=== PATIENT | female | born 1945 | race Caucasian/White ===

== ENCOUNTER 2017-04-18 02:44 | Emergency (ER) | payer BC ==
[~2017-04-18] VITALS: Ht 160 cm; Wt 62.0 kg
[2017-04-18 02:46] VITALS: BP 168/78; PULSE 88; RESP 16; TEMP 99.1; O2SAT 99
[2017-04-18] MEDS ORDERED: FURO10SO PO (03:15)
[2017-04-18] MEDS ORDERED: LIPI20TA PO (03:15)
[2017-04-18] MEDS ORDERED: ALPR0.25 PO (03:15)
[2017-04-18] MEDS ORDERED: FISHCAP4 PO (03:15)
[2017-04-18] MEDS ORDERED: BUPR150XL PO (03:15)
[2017-04-18] MEDS ORDERED: SODIUM CHLORIDE 0.9% FLUSH 10 ML FLUSH IV FLUSH PRN (03:15)
[2017-04-18] MEDS ORDERED: VITA250T3 PO (03:15)
[2017-04-18] MEDS ORDERED: GLUC15009 PO (03:15)
[2017-04-18] MEDS ORDERED: LEVO100T5 PO (03:15)
[2017-04-18] MEDS ORDERED: OMEGCAP PO (03:15)
[2017-04-18] MEDS ORDERED: FERR325T8 PO (03:15)
[2017-04-18] MEDS ORDERED: LANS30CA PO (03:15)
[2017-04-18] MEDS ORDERED: IBUPROFEN 600 MG TAB PO ONE (03:30)
[2017-04-18] MEDS ORDERED: SODIUM CHLOR 0.9% 1000 ML INJ 1,000 ML IV ONE (03:30)
[2017-04-18 03:31] LABS: AUTOMATED NEUTROPHIL # 13.9 TH/MM3 (1.8-7.7); BASOPHIL % 0.3 % (0.0-2.0); EOSINOPHIL % 0.3 % (0.0-4.0); HEMATOCRIT 40.3 % (35.0-46.0); HEMO FLAGS DIFF FINAL; LYMPH % 4.5 % (9.0-44.0); LYMPHOCYTE # 0.7 TH/MM3 (1.0-4.8); MEAN CELL VOLUME 90.3 FL (80.0-100.0); MEAN CORPUSCULAR HEMOGLOBIN 30.2 PG (27.0-34.0); MEAN CORPUSCULAR HGB CONC 33.5 % (32.0-36.0); MONO % 5.4 % (0.0-8.0); NEUT % 89.5 % (16.0-70.0); PLATELET COUNT 158 TH/MM3 (150-450); RED BLOOD COUNT 4.46 MIL/MM3 (4.00-5.30); RED CELL DISTRIBUTION WIDTH 11.4 % (11.6-17.2); WHITE BLOOD COUNT 15.6 TH/MM3 (4.0-11.0)
[2017-04-18] MEDS ORDERED: ACETAMINOPHEN 325 MG TAB PO ONE (03:45)
--- NOTE | 2017-04-18 03:58 | PD ---
HPI Chief Complaint: Complaint Time Seen by Provider: 03:12 Travel History International Travel<30 days: No Contact w/Intl Traveler<30days: No Traveled to known affect area: No History of Present Illness HPI Patient is a 71-year-old female who presents to emergency room with complaints of painless hematuria. She reports that she noticed that her urine was dark this morning, that she feels a tingling sensation she urinates, reports "it kind of feels like an orgasm." Denies urinary urgency or frequency or dysuria. She denies history of kidney stones, denies flank pain. Patient denies any abdominal pain, nausea vomiting or diarrhea. Patient currently is not on any anticoagulants. PFSH Past Medical History Thyroid Disease: Yes Past Surgical History Other Surgery: Yes (VULVECTOMY ) Social History Alcohol Use: No Tobacco Use: No Substance Use: No Allergies-Medications (Allergen,Severity, Reaction): Coded Allergies: iodine (Verified Allergy, Severe, 04/18/17) latex (Verified Allergy, Severe, 04/18/17) acetaminophen (Verified Allergy, Unknown, 04/18/17) hydrocodone (Verified Allergy, Unknown, 04/18/17) Reported Meds & Prescriptions Reported Meds & Active Scripts Active Pyridium (Phenazopyridine HCl) 100 Mg Tab 100 Mg PO Q8H PRN 3 Days Macrobid (Nitrofurantoin Monoh/Nitrofur Macro) 100 Mg Cap 100 Mg PO BID 10 Days Reported Vitamin C (Ascorbic Acid) 250 Mg Tab 500 Mg PO BID [place]-3 Fish Oil/Vitamin (Fish Oil-Cholecalciferol) 1,000-1,000 Mg Cap 1 Cap PO DAILY Fish Oil + D3 (Fish Oil-Cholecalciferol) 1,200-1,000 Mg-Unit Cap 1 Cap PO DAILY Glucosamine 1,500 Mg Tab 1,500 Mg PO BID Furosemide Liq (Furosemide) 10 Mg/Ml Soln 40 Mg PO DAILY Ferrous Sulfate 325 Mg (65 Mg Iron) Tablet 325 Mg PO DAILY Alprazolam 0.25 Mg Tab 0.25 Mg PO Q6H PRN Wellbutrin Xl 24 HR (Bupropion HCl) 150 Mg Tab 150 Mg PO DAILY Levothyroxine (Levothyroxine Sodium) 100 Mcg Tab 100 Mcg PO DAILY Lansoprazole 30 Mg Capdr 30 Mg PO DAILY Lipitor (Atorvastatin Calcium) 20 Mg Tab 20 Mg PO HS Review of Systems General / Constitutional: No: Fever Eyes: No: Visual changes HENT: No: Headaches Cardiovascular: No: Chest Pain or Discomfort Respiratory: No: Shortness of Breath Gastrointestinal: No: Nausea, Vomiting, Abdominal Pain Genitourinary: Positive: Hematuria, No: Dysuria Musculoskeletal: No: Pain Skin: No Rash Neurologic: No: Weakness Psychiatric: No: Depression Endocrine: No: Polydipsia Hematologic/Lymphatic: No: Easy Bruising Physical Exam Narrative GENERAL: No acute distress, nontoxic SKIN: Focused skin assessment warm/dry. HEAD: Atraumatic. Normocephalic. EYES: Pupils equal and round. No scleral icterus. No injection or drainage. ENT: No nasal bleeding or discharge. Mucous membranes pink and moist. NECK: Trachea midline. No JVD. CARDIOVASCULAR: Regular rate and rhythm. No murmur appreciated. RESPIRATORY: No accessory muscle use. Clear to auscultation. Breath sounds equal bilaterally. GASTROINTESTINAL: Abdomen soft, non-tender, nondistended. Hepatic and splenic margins not palpable. No flank pain MUSCULOSKELETAL: No obvious deformities. No clubbing. No cyanosis. No edema. NEUROLOGICAL: Awake and alert. No obvious cranial nerve deficits. Motor grossly within normal limits. Normal speech. PSYCHIATRIC: Appropriate mood and affect; insight and judgment normal. Data Data Last Documented VS Vital Signs Date Time Temp Pulse Resp B/P (MAP) Pulse Ox O2 Delivery O2 Flow Rate FiO2 04/18/17 02:46 99.1 88 16 168/78 (108) 99 Orders Orders Basic Metabolic Panel (Bmp) (04/18/17 03:11) Complete Blood Count With Diff (04/18/17 03:11) Urinalysis - C+S If Indicated (04/18/17 03:11) Iv Access Insert/Monitor (04/18/17 03:11) Sodium Chloride 0.9% Flush (Ns Flush) (04/18/17 03:15) Sodium Chlor 0.9% 1000 Ml Inj (Ns 1000 M (04/18/17 03:30) Ibuprofen (Motrin) (04/18/17 03:30) Acetaminophen (Tylenol) (04/18/17 03:45) Urine Culture (04/18/17 03:17) Ceftriaxone Inj (Rocephin Inj) (04/18/17 04:15) Labs Laboratory Tests Test 04/18/17 03:17 04/18/17 03:20 Urine Color RED Urine Turbidity TURBID Urine pH 6.5 Urine Specific [place] 1.025 Urine Protein 300 mg/dL Urine Glucose (UA) NEG mg/dL Urine Ketones NEG mg/dL Urine Occult Blood MOD Urine Nitrite NEG Urine Bilirubin NEG Urine Urobilinogen LESS THAN 2.0 MG/DL Urine Leukocyte Esterase MOD Urine RBC /hpf Urine WBC /hpf Urine WBC Clumps MANY Urine Bacteria OCC /hpf Microscopic Urinalysis Comment CULTURE INDICATED White Blood Count 15.6 TH/MM3 Red Blood Count 4.46 MIL/MM3 Hemoglobin 13.5 GM/DL Hematocrit 40.3 % Mean Corpuscular Volume 90.3 FL Mean Corpuscular Hemoglobin 30.2 PG Mean Corpuscular Hemoglobin Concent 33.5 % Red Cell Distribution Width 11.4 % Platelet Count 158 TH/MM3 Mean Platelet Volume 8.0 FL Neutrophils (%) (Auto) 89.5 % Lymphocytes (%) (Auto) 4.5 % Monocytes (%) (Auto) 5.4 % Eosinophils (%) (Auto) 0.3 % Basophils (%) (Auto) 0.3 % Neutrophils # (Auto) 13.9 TH/MM3 Lymphocytes # (Auto) 0.7 TH/MM3 Monocytes # (Auto) 0.8 TH/MM3 Eosinophils # (Auto) 0.0 TH/MM3 Basophils # (Auto) 0.0 TH/MM3 CBC Comment DIFF FINAL Differential Comment Blood Urea Nitrogen 7 MG/DL Creatinine 0.62 MG/DL Random Glucose 89 MG/DL Calcium Level 9.1 MG/DL Sodium Level 134 MEQ/L Potassium Level 3.5 MEQ/L Chloride Level 98 MEQ/L Carbon Dioxide Level 27.8 MEQ/L Anion Gap 8 MEQ/L Estimat Glomerular Filtration Rate 95 ML/MIN MDM Medical Decision Making Medical Screen Exam Complete: Yes Emergency Medical Condition: Yes Interpretation(s) Vital Signs Date Time Temp Pulse Resp B/P (MAP) Pulse Ox O2 Delivery O2 Flow Rate FiO2 04/18/17 02:46 99.1 88 16 168/78 (108) 99 Differential Diagnosis Differential includes UTI, kidney stone, bladder cancer Narrative Course Patient is a 71-year-old female who presents to emergency room with complaints of hematuria with a tingling sensation when she urinates. Onset of symptoms was this morning. Patient with no abdominal pain, no flank pain, no nausea or vomiting or any other symptoms. Patient reports painless hematuria. Lab work ordered to check for renal function. UA ordered to evaluate for possible infection. Vital Signs Date Time Temp Pulse Resp B/P (MAP) Pulse Ox O2 Delivery O2 Flow Rate FiO2 04/18/17 02:46 99.1 88 16 168/78 (108) 99 CBC & BMP Diagram 04/18/17 03:20 Calcium Level 9.1 UA positive for hematuria with uti. uc sent. patient was given a dose of rocephin, she will follow up with cultures from today signs and symptoms of when to return to er was reviewed with patient. she will return to ER as needed Diagnosis Primary Impression: UTI (urinary tract infection) Qualified Codes: N30.01 - Acute cystitis with hematuria Referrals: Martir Wynne MD Patient Instructions: General Instructions Additional Instructions: Please follow-up with your primary care doctor Please follow-up with all cultures from today Return to the emergency room if symptoms worsen or progress Return to the emergency room as needed Please take all antibiotics as prescribed Scripts Phenazopyridine (Pyridium) 100 Mg Tab 100 MG PO Q8H Y for DYSURIA for 3 Days, TAB 0 Refills Prov: Shilpa Okeefe DO 04/18/17 Nitrofurantoin Monohydrate Macrocrystals (Macrobid) 100 Mg Cap 100 MG PO BID for Infection for 10 Days, CAP 0 Refills Prov: Shilpa Okeefe DO 04/18/17 Disposition: 01 DISCHARGE HOME Condition: Stable Shilpa Okeefe DO Apr 18, 2017 03:58
[2017-04-18 03:59] LABS: BLOOD, URINE MOD (NEG); COMMENT (UR) CULTURE INDICATED; CULTURE IF INDICATED CULTURE INDICATED; GLUCOSE,URINE NEG (NEG); KETONE, URINE NEG (NEG); NITRITE,URINE NEG (NEG); PH, URINE 6.5 (5.0-8.5)
[2017-04-18 04:00] LABS: URINE COLOR RED (YELLW/STRAW)
[2017-04-18 04:02] LABS: BACTERIA, URINE OCC /hpf
[2017-04-18] MEDS ORDERED: MACR100C2 PO (04:09)
[2017-04-18] MEDS ORDERED: PHEN0.4T PO (04:09)
[2017-04-18] MEDS ORDERED: cefTRIAXone INJ 1,000 MG in SODIUM CHLORIDE 0.9% INJ 100 ML IV ONE (04:15)
[2017-04-18 04:20] LABS: BICARBONATE 27.8 MEQ/L (21.0-32.0); POTASSIUM 3.5 MEQ/L (3.5-5.1)
== END 2017-04-18 05:15 | disposition home or self-care (01) ==
LOC: NEPC 02:44
DX: N30.01 Acute cystitis with hematuria (principal); B96.20 Unspecified Escherichia coli [E. coli] as the cause of diseases classified elsewhere; E03.9 Hypothyroidism, unspecified
CPT/HCPCS: 80048; 81001; 85025; 87077; 87086; 87186; 96361; 96365; 99284; J0696; J7030